=== PATIENT | male | born 1990 ===

== ENCOUNTER 2018-04-11 15:41 | Emergency (ER) | payer SELFPAY ==
[~2018-04-11] VITALS: Ht 170.2 cm; Wt 65.0 kg
[2018-04-11 15:44] VITALS: BP 136/68
== END 2018-04-11 16:10 | disposition home or self-care (01) ==
LOC: ER 15:42
DX: F41.9 Anxiety disorder, unspecified (principal); F15.90 Other stimulant use, unspecified, uncomplicated; F17.200 Nicotine dependence, unspecified, uncomplicated
CPT/HCPCS: 99284